=== PATIENT | female | born 1970 | race Caucasian/White ===

== ENCOUNTER 2021-10-04 08:51 | Emergency (ER) | payer OTHER, MEDICAID ==
[~2021-10-04] VITALS: Ht 165.1 cm; Wt 95.5 kg
[~2021-10-04 08:51] MED LIST: DIAZ10TA4 PO; HYDR-4353 PO; TRAZ-251 PO
[2021-10-04 08:59] VITALS: BP 143/113
== END 2021-10-04 12:27 | disposition left against medical advice (07) ==
LOC: ER 08:51
DX: R07.9 Chest pain, unspecified (principal); Z53.21 Procedure and treatment not carried out due to patient leaving prior to being seen by health care provider
CPT/HCPCS: 36415; 71045; 84484; 93005

== ENCOUNTER 2022-09-15 21:09 | Emergency (ER) | payer MEDICAID, OTHER ==
[~2022-09-15] VITALS: Ht 165.1 cm; Wt 90.9 kg
[2022-09-15 21:33] LABS: BASOPHILS % (AUTO) 0.6 % (0-1); EOSINOPHILS # (AUTO) 0.1 X10'3 (0-0.9); EOSINOPHILS % (AUTO) 1.9 % (0-6); HEMATOCRIT 44.7 % (35.0-45.0); HEMOGLOBIN 14.5 g/dl (12.0-16.0); LYMPHOCYTES # (AUTO) 2.7 X10'3 (1.1-4.8); LYMPHOCYTES % (AUTO) 35.5 % (21-51); MEAN CORPUSCULAR HEMOGLOBIN 27.5 PG (27.0-31.0); MEAN CORPUSCULAR HGB CONC 32.5 g/dL (33.0-36.5); MEAN CORPUSCULAR VOLUME 84.7 FL (78-98); MEAN PLATELET VOLUME 9.5 FL (7.4-10.4); MONOCYTES # (AUTO) 0.4 X10'3 (0-0.9); MONOCYTES % (AUTO) 5.6 % (2-12); NEUTROPHILS # (AUTO) 4.3 X10'3 (1.8-7.7); NEUTROPHILS % (AUTO) 56.4 % (42-75); PLATELET COUNT 293 X10'3 (140-440); RED BLOOD COUNT 5.28 X10'6 (4.20-5.60); RED CELL DISTRIBUTION WIDTH 13.7 % (11.5-14.5); WHITE BLOOD COUNT 7.6 X10'3 (4.5-11.0)
[2022-09-15 21:50] LABS: ALANINE AMINOTRANSFERASE 27 U/L (12-78); ALBUMIN 3.4 G/DL (3.4-5.0); ALBUMIN/GLOBULIN RATIO 0.9 (1.1-1.5); ALKALINE PHOSPHATASE 109 IU/L (46-116); ANION GAP 11 (8-16); ASPARTATE AMINO TRANSFERASE 18 U/L (10-37); BILIRUBIN,TOTAL 0.4 MG/DL (0.1-1.0); BLOOD UREA NITROGEN 7 MG/DL (7-18); CALCIUM 9.2 MG/DL (8.5-10.1); CHLORIDE 104 MMOL/L (99-107); GLUCOSE 104 MG/DL (70-104); POTASSIUM 4.2 MMOL/L (3.5-5.1); SODIUM 142 MMOL/L (135-145); TOTAL CARBON DIOXIDE 27.3 MMOL/L (24-32); TOTAL PROTEIN 7.4 G/DL (6.4-8.2); eGFR > 90 ML/MIN
--- NOTE | 2022-09-15 23:58 | NUR ---
PT BEING EVALUATED BY DR APPIAH
[2022-09-16 00:39] VITALS: BP 143/86
== END 2022-09-16 00:41 | disposition home or self-care (01) ==
LOC: ER 21:09
DX: R07.89 Other chest pain (principal); F17.200 Nicotine dependence, unspecified, uncomplicated; Z98.890 Other specified postprocedural states; Z90.710 Acquired absence of both cervix and uterus
CPT/HCPCS: 36415; 71045; 80053; 83880; 84484; 85025; 93005; 99285

== ENCOUNTER 2023-11-30 17:11 | Emergency (ER) | payer MEDICAID ==
[~2023-11-30] VITALS: Ht 165.1 cm; Wt 86.5 kg
[2023-11-30 18:13] VITALS: BP 153/99; PULSE 89; RESP 16; TEMP 98.4; O2SAT 97
--- NOTE | 2023-12-01 10:50 | NUR ---
PHONE NUMBER LISTED IS OUT OF SERVICE.
== END 2023-11-30 20:23 | disposition left against medical advice (07) ==
LOC: ER 17:12
DX: M79.605 Pain in left leg (principal); Z53.21 Procedure and treatment not carried out due to patient leaving prior to being seen by health care provider

== ENCOUNTER 2023-12-28 13:34 | Emergency (ER) | payer MEDICAID ==
[~2023-12-28] VITALS: Ht 165.1 cm; Wt 89.2 kg
[2023-12-28] MEDS: ketorolac trometh 30MG/ML vial 30 MG/ML VIAL IM ONE (15:13)
[2023-12-28] MEDS: dexamethasone sod phosphate 10mg/ml inj IM STA (15:13)
[2023-12-28] MEDS: cyclobenzaprine 10mg tablet PO ONE (15:14)
[2023-12-28 17:30] VITALS: BP 162/85; PULSE 81; RESP 16; TEMP 97.8; O2SAT 99
== END 2023-12-28 17:27 | disposition home or self-care (01) ==
LOC: ER 13:35
DX: M54.6 Pain in thoracic spine (principal); M79.89 Other specified soft tissue disorders; Z79.899 Other long term (current) drug therapy; Z90.710 Acquired absence of both cervix and uterus; Z98.890 Other specified postprocedural states
CPT/HCPCS: 93970; 96372; 99285; J1100; J1885

== ENCOUNTER 2024-07-28 18:08 | Emergency (ER) | payer SELFPAY ==
[~2024-07-28] VITALS: Ht 165.1 cm; Wt 93.1 kg
[2024-07-28] MEDS ORDERED: ACYC-129 PO (19:03)
[2024-07-28] MEDS ORDERED: PRED20TA PO (19:03)
[2024-07-28] MEDS ORDERED: GABA300C PO (19:03)
--- NOTE | 2024-07-28 19:04 | Physician Documentation ---
History of Present Illness General Chief Complaint: Rash Stated Complaint: SHINGLES Time Seen by MD: 18:58 Primary Medical Doctor: [facility] Asya Savage History of Present Illness Initial Comments 54-year-old female who presents to the emergency department with complaint of suspected shingles. Reports that she has painful unilateral vesicular rash to the right posterior chest wall. Reports that she has been under a lot of stress. Denies having history of diabetes her prior symptoms of the same. Medication Reconciliation Allergies: Coded Allergies: No Known Allergies (Unverified , 07/28/24) Scheduled Acyclovir* (Zovirax*), 1 TAB PO 5XD Diazepam (Diazepam), 1 TABLET PO HS, (Reported) Gabapentin (Neurontin), 1 CAP PO TID Hydrocodone Bit/Acetaminophen ([place] 10-325 Tablet), 1 TABLET PO QID, (Reported) Prednisone* (Prednisone*), 2 TAB PO DAILY Trazodone HCl (Trazodone HCl), 1 TAB PO HS, (Reported) Past Medical History Past Medical History: *PSYCH* Past Surgical History: , hysterectomy, orthopedic surgeries Alcohol Use: Rarely Drug Use: none Lives In: Home Review of Systems All Other Systems at this time: Reviewed and Negative Constitutional: Denies: fever, chills Integ: Reports: lesions Physical Exam Physical Exam Vital Signs: RN Vital Signs have been reviewed: Yes, Temperature: 97.7, Source: Temporal, Heart Rate: 95, Respiratory Rate: 14, BP: 189/114, Pulse Oximetry: 98, Weight: 93.100 General Appearance: alert, WD/WN, mild distress Head: normal inspection Face: normal inspection Pupils/EOM/Fundus: PERRLA Neurologic: oriented x4 Motor / Sensory: no motor deficit, no sensory deficit Psychiatric: normal mood/affect Skin: normal color, rash, vesicles, dermatomic Skin Right posterior shoulder dermatomal Lymphatic: no adenopathy Progress Results/Orders Results/Orders Vital Signs 07/28/24 07/28/24 18:34 19:12 Temp 97.7 97.7 Pulse 95 73 Resp 14 12 B/P (MAP) 189/114 140/86 Pulse Ox 98 99 Medical Decision Making Differential Diagnosis Examination and history consistent with a painful unilateral vesicular dermatomal rash consistent with shingles. We will begin acyclovir, gabapentin and prednisone. Patient was a follow up with [facility] and return if worse. Departure Disposition: HOME / SELF CARE / HOMELESS Impression: Primary Impression: Shingles Qualified Codes: B02.9 - Zoster without complications Condition: Stable Discharge Instructions: Shingles, [id number] Additional Instructions: Your examination is consistent with shingles. I have prescribed medications to be obtained at the pharmacy. Make follow up appointment at [facility]. Return to the emergency department as needed. Referrals: NO PRIMARY CARE PROVIDER (PCP) Prescriptions Prednisone* (Prednisone*) 20 Mg Tablet 2 TAB PO DAILY, #10 TAB Prov: MAURI STEWARD 07/28/24 Gabapentin (Neurontin) 300 Mg Capsule 1 CAP PO TID for 10 Days, #30 CAP use 1 tablets by mouth 3 times a day for 3 days then 1 tablets twice a day for 3 days then 1 tablet a dayfor 3 days Prov: MAURI STEWARD 07/28/24 Acyclovir* (Zovirax*) 800 Mg Tablet 1 TAB PO 5XD for 7 Days, #35 TAB Prov: MAURI STEWARD 07/28/24 Education Educated: Patient Educated regarding: diagnosis, treatment, prognosis Signature Scribe Signature: . Attestation: . MAURI STEWARD July 28, 2024 19:04
[2024-07-28 19:12] VITALS: BP 140/86; PULSE 73; RESP 12; TEMP 97.7; O2SAT 99
== END 2024-07-28 19:19 | disposition home or self-care (01) ==
LOC: ER 18:09
DX: B02.9 Zoster without complications (principal); Z90.710 Acquired absence of both cervix and uterus
CPT/HCPCS: 99283

== ENCOUNTER 2025-02-13 16:16 | Emergency (ER) | payer MEDICAID ==
[~2025-02-13] VITALS: Ht 165.1 cm; Wt 93.5 kg
[~2025-02-13 16:16] MED LIST changes: +GABA300C PO
[2025-02-13 16:25] VITALS: TEMP 98.3
--- NOTE | 2025-02-13 16:56 | RADIOLOGY REPORT ---
CHEST RADIOGRAPH Indication: CP Technique: Single frontal view of the chest was obtained. Comparison: CHEST,SINGLE VIEW on DOS: 09/15/22 Findings: No focal consolidation. No significant pleural effusion. No pneumothorax. Stable cardiomediastinal silhouette. IMPRESSION: No acute pulmonary process.
[2025-02-13 17:02] LABS: MEAN PLATELET VOLUME 8.9 FL (7.4-10.4); RED CELL DISTRIBUTION WIDTH 14.1 % (11.5-14.5)
[2025-02-13 17:25] LABS: CREATININE 0.58 MG/DL (0.40-0.90); PRO BRAIN NATRIURETIC PEPTIDE 66 PG/ML (0-125); TOTAL CARBON DIOXIDE 29.5 MMOL/L (24-32); eCRCL 100 ML/MIN; eGFR > 90 ML/MIN
[2025-02-13 18:03] VITALS: BP 159/106; PULSE 92; O2SAT 98
[2025-02-13 18:05] VITALS: RESP 16
[2025-02-13] MEDS ORDERED: FAMO40TA73 PO (18:26)
[2025-02-13] MEDS ORDERED: VALS1TAB73 PO (18:26)
--- NOTE | 2025-02-13 18:27 | Physician Documentation ---
History of Present Illness ~ Chief Complaint: Chest Wall Pain Stated Complaint: SOB/CHEST PRESSURE Time Seen by MD: 17:13 Primary Medical Doctor: NONE Mode of Arrival: POV HPI 55-year-old female who presents to the emergency department with a complaint of epigastric discomfort/chest tightness. Patient has a history of hypertension yet has not been taking her medications. Reports that she has lost edematous pending and refill. No associated headache, nausea or vomiting, visual dif ficulties or unsteady gait Symptom has been present for three days without shortness of breath, nausea or vomiting and/or diaphoresis. Patient reports she has a long time smoker. Denies having history of emphysema/COPD. No reported fevers. No unintentional weight loss, hemoptysis or night sweats. Medication Reconciliation Allergies: Coded Allergies: No Known Allergies (Unverified , 02/13/25) Scheduled Diazepam (Diazepam), 1 TABLET PO HS, (Reported) Famotidine (Pepcid), 1 TABLET PO DAILY Gabapentin (Neurontin), 1 CAP PO TID Hydrocodone Bit/Acetaminophen ([place] 10-325 Tablet), 1 TABLET PO QID, (Reported) Trazodone HCl (Trazodone HCl), 1 TAB PO HS, (Reported) Valsartan/Hydrochlorothiazide (Valsartan-Hctz 80-12.5 Mg Tab), 1 TAB PO DAILY Past Medical History Past Medical History: *PSYCH* Past Surgical History: , hysterectomy, orthopedic surgeries Alcohol Use: Rarely Drug Use: none Lives In: Home Review of Systems All Other Systems at this time: Reviewed and Negative Constitutional: Reports: see HPI Respiratory: Reports: see HPI Cardiovascular: Reports: see HPI Gastrointestinal: Reports: see HPI Physical Exam Vital Signs: Temperature: 98.3, Source: Oral, Heart Rate: 92, Respiratory Rate: 16, BP: 159/106, Pulse Oximetry: 98, Weight: 93.500 Oxygen Flow Rate: 0 Progress Results/Orders Results/Orders Vital Signs 02/13/25 02/13/25 02/13/25 16:25 18:03 18:05 Temp 98.3 Pulse 88 92 Resp 18 16 16 B/P (MAP) 157/101 159/106 (123) Pulse Ox 100 98 O2 Flow Rate 0 0 Laboratory Tests Test 02/13/25 16:48 White Blood Count 7.7 Red Blood Count 5.74 H Hemoglobin 15.7 Hematocrit 47.1 H Mean Corpuscular Volume 82.1 Mean Corpuscular Hemoglobin 27.4 Mean Corpuscular Hemoglobin Concent 33.4 Red Cell Distribution Width 14.1 Platelet Count 331 Mean Platelet Volume 8.9 Neutrophils (%) (Auto) 54.6 Lymphocytes (%) (Auto) 37.1 Monocytes (%) (Auto) 5.5 Eosinophils (%) (Auto) 2.3 Basophils (%) (Auto) 0.5 Neutrophils # (Auto) 4.2 Lymphocytes # (Auto) 2.9 Monocytes # (Auto) 0.4 Eosinophils # (Auto) 0.2 Basophils # (Auto) 0.0 CBC Comment Sodium Level 138 Potassium Level 4.0 Chloride Level 101 Carbon Dioxide Level 29.5 Anion Gap 8 Blood Urea Nitrogen 8 Creatinine 0.58 Estimated GFR/1.73 m2 > 90 BUN/Creatinine Ratio 13.8 Glucose Level 105 H Calcium Level 9.0 Troponin I High Sensitivity 11 Pro-B-Type Natriuretic Peptide 66 Albumin 3.6 Chemistry Comments Medical Decision Making Additional information obtaine: N/A Findings 55-year-old female with a epigastric/chest discomfort with reassuring labs, imaging EKG. Low suspicion for acute coronary syndrome yet examination history consistent with GERD, can not exclude the symptomatology may be secondary to poor compliance with high blood pressure medications. Patient placed on valsartan/HCTZ until able to follow up with the primary care physician for medication review. Safely discharged in the emergency department.. Heart Score: 2 Differential Dx:Considerations: Include: angina, aortic dissection, chest wall pain, CHF, costochondritis, esophageal reflux/spasm, gastritis, pericarditis, pleuritis, pneumonia, pneumothorax, pulmonary embolus Departure Disposition: HOME / SELF CARE / HOMELESS Impression: Primary Impression: Hypertension Qualified Codes: I10 - Essential (primary) hypertension Condition: Stable Discharge Instructions: Hypertension, Adult, [id number] Additional Instructions: Today in the emergency department you had labs obtained which were reassuring, EKGs also reassuring and chest x-ray imaging reassuring. Please begin your Blood pressure medication as directed and schedule follow up with the primary care physician for re-evaluation of epigastric discomfort in 2 weeks. If symptoms worsen please return to the emergency department for re-evaluation. Thank you for visiting [facility]. Referrals: NO PRIMARY CARE PROVIDER (PCP) Prescriptions Famotidine (Pepcid) 40 Mg Tablet 1 TABLET PO DAILY, #30 TABLET 1 Refill may sub any h2 laxmi per formulary at high dose Prov: MAURI STEWARD 02/13/25 Valsartan/Hydrochlorothiazide (VALSARTAN-HCTZ 80-12.5 MG TAB) 80 Mg-12.5 Mg Tablet 1 TAB PO DAILY for 30 Days, #30 TAB 0 Refills Prov: MAURI STEWARD 02/13/25 Education Educated: Patient, Family Educated regarding: diagnosis, treatment, prognosis, need for follow up Signature Scribe Signature: . Attestation: . MAURI STEWARD Feb 13, 2025 18:27
--- NOTE | 2025-02-14 06:00 | ELECTROCARDIOGRAPH REPORT ---
[facility] Test Date: 2025-02-13 Test Time: 16:23:21 Pat Name: ADDY STEPHEN Department: EMERGENCY ROOM Patient ID: [id number] Room: Gender: F Senior Service Aide: UMA : 1970 Requested By: BERENICE FOX Order Number: [id number] Reading MD: Dr. KEIRA Greer Measurements Intervals Tyro Rate: 91 P: 79 CT: 185 QRS: 11 QRSD: 103 T: 70 QT: 419 QTc: 516 Interpretive Statements Sinus rhythm Right atrial enlargement Low voltage, precordial leads Prolonged QT interval Baseline wander in lead(s) I,III,aVL,V4 Electronically Signed On 02-14-2025 16:52:[address] KEIRA Greer Please click the below link to view image of tracing.
== END 2025-02-13 18:39 | disposition home or self-care (01) ==
LOC: ER 16:16
DX: I10 Essential (primary) hypertension (principal); F17.200 Nicotine dependence, unspecified, uncomplicated; Z90.710 Acquired absence of both cervix and uterus; Z79.899 Other long term (current) drug therapy; Z98.890 Other specified postprocedural states
CPT/HCPCS: 36415; 71045; 80048; 83880; 84484; 85025; 93005; 99285